=== PATIENT | male | born 1990 | race Caucasian/White ===

== ENCOUNTER 2022-03-07 12:53 | Emergency (ER) | payer SELFPAY ==
[~2022-03-07] VITALS: Ht 165.1 cm; Wt 82.0 kg
[2022-03-07 13:49] VITALS: BP 127/85
== END 2022-03-07 15:15 | disposition home or self-care (01) ==
LOC: ER 14:57
DX: H93.12 Tinnitus, left ear (principal)
CPT/HCPCS: 99283